=== PATIENT | male | born 1985 | race Caucasian/White ===

== ENCOUNTER 2020-11-09 18:56 | Emergency (ER) | payer BC ==
--- NOTE | 2020-11-09 18:58 | ERPHSYRPT ---
- History of Present Illness Time Seen by Provider: 11/09/20 18:57 Source: patient Exam Limitations: no limitations Physician History: This is a right-handed 35-year-old white male who has suffered a laceration to his right upper inner arm well attempting to work on his garage door. He did not lose consciousness. His tetanus status is up-to-date. Timing/Duration: today Quality: painful Severity: mild Location: extremities (Right inner upper arm) Possible Causes: other (Trauma) Associated Symptoms: other (Laceration right upper inner arm) Allergies/Adverse Reactions: No Known Drug Allergies Allergy (Unverified 11/09/20 19:09) Home Medications: No Reportable Medications [No Reported Medications] 11/09/20 [History] Travel Risk - International Travel Have you traveled outside of the country in past 3 weeks: No - Coronavirus Screening Are you exhibiting any of the following symptoms?: No Close contact with a COVID-19 positive Pt in past 14-21 Days: No - Review of Systems Constitutional: No Symptoms Eyes: No Symptoms Ears, Nose, & Throat: No Symptoms Respiratory: No Symptoms Cardiac: No Symptoms Abdominal/Gastrointestinal: No Symptoms Genitourinary Symptoms: No Symptoms Musculoskeletal: No Symptoms Skin: Other (Laceration to right upper arm inner aspect) Neurological: No Symptoms Psychological: No Symptoms Endocrine: No Symptoms Hematologic/Lymphatic: No Symptoms Immunological/Allergic: No Symptoms All Other Systems: Reviewed and Negative - Past Medical History Pertinent Past Medical History: Yes - Past Surgical History Past Surgical History: Yes - Nursing Vital Signs Nursing Vital Signs: Initial Vital Signs Temperature 97.5 F 11/09/20 19:00 Pulse Rate 79 11/09/20 19:00 Respiratory Rate 20 11/09/20 19:00 Blood Pressure 128/98 11/09/20 19:00 O2 Sat by Pulse Oximetry 95 11/09/20 19:00 Pain Scale Pain Intensity 2 - Physical Exam General Appearance: no apparent distress, alert, anxiety Eye Exam: PERRL/EOMI, eyes nml inspection Ears, Nose, Throat Exam: normal ENT inspection, moist mucous membranes Neck Exam: normal inspection, non-tender, supple, full range of motion Respiratory Exam: normal breath sounds, lungs clear, airway intact, No chest tenderness, No respiratory distress Cardiovascular Exam: regular rate/rhythm, normal heart sounds, normal peripheral pulses Gastrointestinal/Abdomen Exam: soft, normal bowel sounds, No tenderness Rectal Exam: not done Back Exam: normal inspection, normal range of motion, No CVA tenderness, No vertebral tenderness Extremity Exam: normal range of motion, pelvis stable, lacerations (6 cm laceration right upper arm, inner aspect. Neurovascularly intact. Tendons intact. No foreign body. No active bleeding.), tenderness Neurologic Exam: alert, oriented x 3, cooperative, dependency program director II-XII nml as tested, normal mood/affect, nml cerebellar function, nml station & gait, sensation nml Skin Exam: laceration (See above) Lymphatic Exam: No adenopathy SpO2 Interpretation: normal O2 Delivery: Room Air Procedures - Laceration/Wound Repair Right Upper Medial Arm Time of Procedure: 19:35 Wound Location: Right, upper arm (, Inner aspect right side) Wound's Depth, Shape: superficial, linear, into subcut Wound Explored: clean (No foreign body noted. Examination was performed to the base in a bloodless field) Irrigated: Yes Hibiclens Prep: Yes Anesthesia: local, 1% Lidocaine Volume Anesthetic (ccs): 10 Wound Repaired With: sutures, [place] Suture Size/Type: 3-0, nylon Number of Sutures: 3 (In addition,) Layer Closure?: No Sterile Dressing Applied?: Yes Ordered Tests: Medication Summary Generic Name Dose Route Start Last Admin Trade Name Freq PRN Reason Stop Dose Admin Hydrocodone Bitart/Acetaminophen 2 tab 11/09/20 19:48 [place] 5/325 Mg PO 11/09/20 19:49 SENT HOME W/ PATIENT ONE Discontinued Medications Generic Name Dose Route Start Last Admin Trade Name Freq PRN Reason Stop Dose Admin Lidocaine HCl Confirm 11/09/20 19:22 Xylocaine 1% Hcl 20 Ml Mdv Administered 11/09/20 19:23 Dose 10 ml .ROUTE .STK-MED ONE - Progress Progress: improved, pain not gone completely, re-examined Counseled pt/family regarding: diagnosis, need for follow-up - Departure Departure Disposition: Home Clinical Impression: Laceration of right upper arm Condition: Stable Critical Care Time: No Referrals: KRYSTAL BRONSON, OPTICAL INSTRUMENT ASSEMBLY SUPERVISOR [Primary Care Provider] - Additional Instructions: Keep current dressing in place for 24 hours. After 24 hours, may remove the dressing completely and wash the laceration repair site with soap and water. Blot dry use a hairdryer then cover the laceration repair site with a bandage, nonstick gauze and bandage. May use Tylenol and ibuprofen for pain control. After 24 hours, may do daily wound/dressing care as stated above. Staple and suture removal in 10 days. Forms: Work/School Release Form
[2020-11-09 19:10] VITALS: BP 128/98; PULSE 79; O2SAT 95
[2020-11-09] MEDS ORDERED: XYLOCAINE 1% HCL 20 ML MDV ONE (19:22)
[2020-11-09] MEDS ORDERED: NORCO 5/325 MG PO ONE (19:48)
[2020-11-09] MEDS ORDERED: XYLOCAINE 1% HCL 20 ML MDV IJ ONE (19:51)
[2020-11-09] MEDS ORDERED: BACIGUENT PACKET TP ONE (19:52)
[2020-11-09] MEDS ORDERED: BACIGUENT PACKET ONE (19:53)
[2020-11-09] MEDS ORDERED: NORCO 5/325 MG ONE (19:53)
== END 2020-11-09 20:11 | disposition home or self-care (01) ==
LOC: ED 18:56
DX: S41.111A Laceration without foreign body of right upper arm, initial encounter (principal); W26.8XXA Contact with other sharp object(s), not elsewhere classified, initial encounter; Y93.89 Activity, other specified; Y92.89 Other specified places as the place of occurrence of the external cause
CPT/HCPCS: 12002; 96372; 99283; A9270-GY

== ENCOUNTER 2020-11-19 12:47 | Emergency (ER) | payer BC ==
--- NOTE | 2020-11-19 13:30 | ERPHSYRPT ---
- History of Present Illness Time Seen by Provider: 11/19/20 12:49 Source: patient Exam Limitations: no limitations Patient Subjective Stated Complaint: here to have krystle removed Triage Nursing Assessment: Pt came to the ER to have krystle and sutures removed from his right forearm near the elbow, denies pain, wound appears to be healing nice, doesn't appear to be in any distress Physician History: 35 years old male presented in the ER was stable/stitches removal from right medial elbow area for place in 9 days ago. Denies any discharge swelling around. No fever or chills. No difficulty movements of elbow. Allergies/Adverse Reactions: No Known Drug Allergies Allergy (Unverified 11/09/20 19:09) Home Medications: No Reportable Medications [No Reported Medications] 11/09/20 [History] Hx Tetanus, Diphtheria Vaccination/Date Given: Yes Hx Influenza Vaccination/Date Given: No Hx Pneumococcal Vaccination/Date Given: No Travel Risk - International Travel Have you traveled outside of the country in past 3 weeks: No - Coronavirus Screening Are you exhibiting any of the following symptoms?: No Close contact with a COVID-19 positive Pt in past 14-21 Days: No - Vaccine Status Have you recieved a Covid-19 vaccination: No - Review of Systems Constitutional: No Symptoms Respiratory: No Symptoms Cardiac: No Symptoms Abdominal/Gastrointestinal: No Symptoms Musculoskeletal: No Symptoms Skin: Skin Lesions Neurological: No Symptoms - Past Medical History Pertinent Past Medical History: No - Past Surgical History Past Surgical History: Yes Genitourinary: Kidney Surgery Other Surgical History: r nephrectomy - living donor to mother - Social History Smoking Status: Never smoker Exposure to second hand smoke: No Drug Use: none Patient Lives Alone: No - Physical Exam General Appearance: no apparent distress, alert Eye Exam: PERRL/EOMI Neck Exam: normal inspection Respiratory Exam: normal breath sounds, lungs clear Cardiovascular Exam: regular rate/rhythm, normal heart sounds Extremity Exam: normal inspection, other (Longitudinal laceration around right inner aspect of elbow with 3 stitches and 8 krystle. Minimal erythema around. No discharge. Wound edges well approximated. [place] and sutures are removed. No bleeding or discharge.) Neurologic Exam: alert, oriented x 3, cooperative Skin Exam: normal color O2 Delivery: Room Air - Progress Progress Note: 11/19/20 13:29 Wound seems well-healing. Stable and sutures are removed. Discussed wound care and outpatient follow-up as needed. Counseled pt/family regarding: diagnosis, need for follow-up - Departure Departure Disposition: Home Clinical Impression: Encounter for removal of sutures, Visit for wound check Condition: Stable Critical Care Time: No Referrals: KRYSTAL BRONSON, GROUNDS RESTORATION SPECIALIST [Primary Care Provider] - (As needed) Instructions: Wound Care (DC)
== END 2020-11-19 13:30 | disposition home or self-care (01) ==
LOC: ED 12:47
DX: Z48.02 Encounter for removal of sutures (principal)
CPT/HCPCS: 99282; G0463

== ENCOUNTER 2022-12-08 12:34 | Emergency (ER) | payer BC ==
[2022-12-08 12:56] VITALS: TEMP 97.9
[2022-12-08] MEDS ORDERED: Sodium Chloride 0.9% 1000 ML 1,000 ML IV STA (13:13)
[2022-12-08] MEDS ORDERED: Sodium Chloride 0.9% 1000 ML 1,000 ML ONE (13:17)
--- NOTE | 2022-12-08 13:21 | ERPHSYRPT ---
- History of Present Illness Time Seen by Provider: 12/08/22 13:17 Exam Limitations: no limitations Patient Subjective Stated Complaint: pt states that his belly feels bloated and gassy Triage Nursing Assessment: pt ambulated into the er; pt is axo x4; c/o abd pain; abd is round, distended, tender; hyperactive bowel sounds in all quads; c/o N/V/D; mucus membranes pink and moist; skin PDW; no respiratorty distress; vitals wnl Physician History: Patient is a 37-year-old male presents to our ED for evaluation of vomiting x1 week and abdominal pain for the past 2 days. Patient states he feels bloated and gassy. Patient describes his pain as a hunger sensation however he states he is eating. The pain is generalized and nonfocal. No associated symptoms otherwise. No fever. No diarrhea. No rash no trauma. No obvious sick contacts. Patient works as a welder apprentice. at bedside. They voiced no other complaints or concerns at this time. Portions of this note were created with voice recognition technology. There may be grammatical, spelling, punctuation or sound alike errors Timing/Duration: week(s) Activities at Onset: none Quality: other (Hunger like pains) Abdominal Pain Onset Location: generalized abdomen Pain Radiation: no radiation Severity of Pain-Max: moderate Severity of Pain-Current: mild Modifying Factors: Improves With: other Associated Symptoms: nausea, vomiting Previous symptoms: no prior history Allergies/Adverse Reactions: No Known Drug Allergies Allergy (Verified 12/08/22 12:41) Hx Tetanus, Diphtheria Vaccination/Date Given: Yes (2020) Hx Influenza Vaccination/Date Given: No Hx Pneumococcal Vaccination/Date Given: No Travel Risk - International Travel Have you traveled outside of the country in past 3 weeks: No - Coronavirus Screening Close contact with a COVID-19 positive Pt in past 14-21 Days: No - Vaccine Status Have you recieved a Covid-19 vaccination: Yes Instrument Person: Moderna - Vaccination Dates Date of 2cond Vaccination (if applicable): 2020 - Review of Systems Constitutional: No Symptoms, No Fever, No Chills Eyes: No Symptoms Ears, Nose, & Throat: No Symptoms Respiratory: No Symptoms, No Cough, No Dyspnea Cardiac: No Symptoms, No Chest Pain, No Edema, No Syncope Abdominal/Gastrointestinal: No Symptoms, No Abdominal Pain, No Nausea, No Vomiting, No Diarrhea Genitourinary Symptoms: No Symptoms, No Dysuria Musculoskeletal: No Symptoms, No Back Pain, No Neck Pain Skin: No Symptoms, No Rash Neurological: No Symptoms, No Dizziness, No Focal Weakness, No Sensory Changes Psychological: No Symptoms Endocrine: No Symptoms Hematologic/Lymphatic: No Symptoms Immunological/Allergic: No Symptoms All Other Systems: Reviewed and Negative - Past Medical History Pertinent Past Medical History: No - Past Surgical History Past Surgical History: Yes Genitourinary: Kidney Surgery Male Surgical History: Testicular Surgery Other Surgical History: r nephrectomy - living donor to mother, fluid removed from left testicle - Social History Smoking Status: Never smoker Exposure to second hand smoke: Yes Drug Use: none Patient Lives Alone: No - Nursing Vital Signs Nursing Vital Signs: Initial Vital Signs Temperature 97.9 F 12/08/22 12:42 Pulse Rate 68 12/08/22 12:42 Respiratory Rate 18 12/08/22 12:42 Blood Pressure 138/96 12/08/22 12:42 O2 Sat by Pulse Oximetry 98 12/08/22 12:42 Pain Scale Pain Intensity 5 - Physical Exam General Appearance: no apparent distress, alert Eye Exam: PERRL/EOMI, eyes nml inspection Ears, Nose, Throat Exam: normal ENT inspection, pharynx normal, moist mucous membranes Neck Exam: normal inspection, non-tender, supple, full range of motion Respiratory Exam: normal breath sounds, lungs clear, airway intact, No respiratory distress Cardiovascular Exam: regular rate/rhythm, normal heart sounds, normal peripheral pulses Gastrointestinal/Abdomen Exam: soft, No tenderness, No mass Back Exam: normal inspection, normal range of motion, No CVA tenderness, No vertebral tenderness Extremity Exam: normal inspection, normal range of motion, pelvis stable Neurologic Exam: alert, oriented x 3, cooperative, normal mood/affect, nml cerebellar function, sensation nml, No motor deficits Skin Exam: normal color, warm, dry Lymphatic Exam: No adenopathy SpO2 Interpretation: normal SpO2: 98 O2 Delivery: Room Air - Course Nursing assessment & vital signs reviewed: Yes EKG Interpreted by Me: RATE (65), Sinus Rhythm, NORMAL AXIS, NORMAL INTERVALS - CT Exams Abdomen/Pelvis CT Interpretation: Tele-radiologist Report (Atelectasis, diverticulosis, right total nephrectomy) Ordered Tests: Active Orders 24 hr Category Date Time Status IV Insertion STAT Care 12/08/22 13:13 Completed ABDOMEN AND PELVIS W/0 CONTRAS [CT] Stat Exams 12/08/22 13:13 Completed CBC W DIFF Stat Lab 12/08/22 13:00 Completed CMP Stat Lab 12/08/22 13:00 Completed LIPASE Stat Lab 12/08/22 13:00 Completed TROPONIN Q4H Lab 12/08/22 13:00 Completed TROPONIN Q4H Lab 12/08/22 17:15 Ordered TROPONIN Q4H Lab 12/08/22 21:15 Ordered UA W/RFX UR CULTURE Stat Lab 12/08/22 13:16 Completed Medication Summary Discontinued Medications Generic Name Dose Route Start Last Admin Trade Name Freq PRN Reason Stop Dose Admin Sodium Chloride 1,000 mls @ 999 mls/hr 12/08/22 13:13 12/08/22 14:21 Sodium Chloride 0.9% 1000 Ml IV 12/08/22 14:13 Infused .Q1H1M STA Infusion Sodium Chloride Confirm 12/08/22 13:17 Sodium Chloride 0.9% 1000 Ml Administered 12/08/22 13:18 Dose 1,000 mls @ ud .ROUTE .STK-MED ONE Pantoprazole Sodium 40 mg 12/08/22 14:58 12/08/22 15:00 Pantoprazole 40 Mg Vial IV 12/08/22 14:59 40 mg STAT ONE Administration Pantoprazole Sodium Confirm 12/08/22 14:59 Pantoprazole 40 Mg Vial Administered 12/08/22 15:00 Dose 40 mg IV .STK-MED ONE Lab/Rad Data: Laboratory Result Diagrams 12/08/22 13:00 12/08/22 13:00 Laboratory Results 12/08/22 12/08/22 12/08/22 Range/Units 13:16 13:00 13:00 WBC (4.0-10.5) x10^3/uL RBC (4.1-5.6) x10^6/uL Hgb (12.5-18.0) g/dL Hct (42-50) % MCV (78-100) fL MCH (26-32) pg MCHC (32-36) g/dL RDW (11.5-14.0) % Plt Count (150-450) x10^3/uL MPV (7.5-11.0) fL Gran % (36.0-66.0) % Immature Gran % (Auto) (0.00-0.4) % Nucleat RBC Rel Count (0.00-0.1) % Eos # (Auto) (0-0.5) x10^3/uL Immature Gran # (Auto) (0.00-0.03) x10^3u/L Absolute Lymphs (auto) (1.0-4.6) x10^3/uL Absolute Monos (auto) (0.0-1.3) x10^3/uL Absolute Nucleated RBC (0.00-0.01) x10^3u/L Lymphocytes % (24.0-44.0) % Monocytes % (0.0-12.0) % Eosinophils % (0.00-5.0) % Basophils % (0.0-0.4) % Absolute Granulocytes (1.4-6.9) x10^3/uL Basophils # (0-0.4) x10^3/uL Sodium 141 (137-145) mmol/L Potassium 4.1 (3.5-5.1) mmol/L Chloride 106 (98-107) mmol/L Carbon Dioxide 25 (22-30) mmol/L Anion Gap 15.0 (5-15) MEQ/L BUN 16 (9-20) mg/dL Creatinine 1.06 (0.66-1.25) mg/dL Estimated GFR > 60.0 ML/MIN Glucose 93 (74-106) mg/dL Calcium 8.7 (8.4-10.2) mg/dL Total Bilirubin 0.40 (0.2-1.3) mg/dL AST 28 (17-59) U/L ALT 18 (0-50) U/L Alkaline Phosphatase 77 (38-126) U/L Troponin I < 0.012 (0.000-0.034) ng/mL Serum Total Protein 7.2 (6.3-8.2) g/dL Albumin 4.4 (3.5-5.0) g/dL Lipase 53 (23-300) U/L Urine Color Yellow (Yellow) Urine Appearance Clear (Clear) Urine pH 5.5 (4.6-8.0) Ur Specific [place] 1.025 (1.005-1.030) Urine Protein Negative (Negative) Urine Glucose (UA) Negative (Negative) mg/dL Urine Ketones Negative (Negative) Urine Blood Negative (Negative) Urine Nitrite Negative (Negative) Urine Bilirubin Negative (Negative) Urine Urobilinogen 0.2 (0.2) mg/dL Ur Leukocyte Esterase Negative (Negative) U Hyaline Cast (Auto) NONE SEEN (0-2) /LPF Urine Microscopic RBC 0-2 (0-5) /HPF Urine Microscopic WBC 0-2 (0-5) /HPF Ur Epithelial Cells None Seen (None Seen) /HPF Urine Bacteria None Seen (None Seen) /HPF Urine Culture Reflexed NO (NO) 12/08/22 Range/Units 13:00 WBC 6.2 (4.0-10.5) x10^3/uL RBC 4.75 (4.1-5.6) x10^6/uL Hgb 13.7 (12.5-18.0) g/dL Hct 41.8 L (42-50) % MCV 88.0 (78-100) fL MCH 28.8 (26-32) pg MCHC 32.8 (32-36) g/dL RDW 11.6 (11.5-14.0) % Plt Count 231 (150-450) x10^3/uL MPV 11.1 H (7.5-11.0) fL Gran % 71.6 H (36.0-66.0) % Immature Gran % (Auto) 0.5 H (0.00-0.4) % Nucleat RBC Rel Count 0.0 (0.00-0.1) % Eos # (Auto) 0.01 (0-0.5) x10^3/uL Immature Gran # (Auto) 0.03 (0.00-0.03) x10^3u/L Absolute Lymphs (auto) 1.27 (1.0-4.6) x10^3/uL Absolute Monos (auto) 0.43 (0.0-1.3) x10^3/uL Absolute Nucleated RBC 0.00 (0.00-0.01) x10^3u/L Lymphocytes % 20.5 L (24.0-44.0) % Monocytes % 6.9 (0.0-12.0) % Eosinophils % 0.2 (0.00-5.0) % Basophils % 0.3 (0.0-0.4) % Absolute Granulocytes 4.43 (1.4-6.9) x10^3/uL Basophils # 0.02 (0-0.4) x10^3/uL Sodium (137-145) mmol/L Potassium (3.5-5.1) mmol/L Chloride (98-107) mmol/L Carbon Dioxide (22-30) mmol/L Anion Gap (5-15) MEQ/L BUN (9-20) mg/dL Creatinine (0.66-1.25) mg/dL Estimated GFR ML/MIN Glucose (74-106) mg/dL Calcium (8.4-10.2) mg/dL Total Bilirubin (0.2-1.3) mg/dL AST (17-59) U/L ALT (0-50) U/L Alkaline Phosphatase (38-126) U/L Troponin I (0.000-0.034) ng/mL Serum Total Protein (6.3-8.2) g/dL Albumin (3.5-5.0) g/dL Lipase (23-300) U/L Urine Color (Yellow) Urine Appearance (Clear) Urine pH (4.6-8.0) Ur Specific [place] (1.005-1.030) Urine Protein (Negative) Urine Glucose (UA) (Negative) mg/dL Urine Ketones (Negative) Urine Blood (Negative) Urine Nitrite (Negative) Urine Bilirubin (Negative) Urine Urobilinogen (0.2) mg/dL Ur Leukocyte Esterase (Negative) U Hyaline Cast (Auto) (0-2) /LPF Urine Microscopic RBC (0-5) /HPF Urine Microscopic WBC (0-5) /HPF Ur Epithelial Cells (None Seen) /HPF Urine Bacteria (None Seen) /HPF Urine Culture Reflexed (NO) - Progress Progress: improved Progress Note: Patient is a 37-year-old male presents to our ED with his for evaluation of mild abdominal pain vomiting. Physical exam patient had mild diffuse abdominal tenderness. However otherwise negative. Laboratory work-up essentially nonremarkable. Troponin negative. EKG normal sinus rhythm. CT negative for acute pathology. Patient declined pain medication. Patient received IV fluid hydration and pantoprazole. Patient reassessed. He is resting comfortably. Patient has no active discomfort or pain. Results discussed with patient and family. A prescription for pantoprazole started to patient's pharmacy. They agree to follow-up with her primary care doctor within 48 hours for reevaluation. They voiced no other complaints or concerns at this time. Portions of this note were created with voice recognition technology. There may be grammatical, spelling, punctuation or sound alike errors Complexity of problems addressed is moderate acute complicated. No critical care time Complex of data reviewed and analyzed is moderate. Test ordered test reviewed and analyzed. Clinical correlation made between laboratory imaging findings and history and physical examination. No significant findings observed on laboratory or imaging studies. Patient's physical exam revealed mild diffuse abdominal discomfort. Based on the above and conversation with patient and , the decision was made to discharge home with follow-up and a prescription for pantoprazole Risk of complication and or risk morbidity/mortality patient management is mo derate. Vital stable. Time spent to discharge patient approximately 15 minutes. Plan of care established for shared decision making. No social determinants of health present to impede follow-up. Patient/ voiced no other complaints or concerns at this time. Portions of this note were created with voice recognition technology. There may be grammatical, spelling, punctuation or sound alike errors 12/08/22 15:07 Counseled pt/family regarding: lab results, diagnosis, need for follow-up, rad results - Departure Departure Disposition: Home Clinical Impression: Abdominal pain, Diarrhea Condition: Stable Critical Care Time: No Referrals: KRYSTAL BRONSON ART FRAMING MANAGER [NON-STAFF PHY W/O PRIVILEGES] - Follow up/PCP as directed Instructions: Severe Abdominal Pain, Adult (DC) Additional Instructions: Discharge/Care Plan DWAYNE COLLINS was seen on 12/08/22 in the Emergency Room. The patient was counseled regarding Diagnosis,Lab results, Imaging studies, need for follow up and when to return to the Emergency Room. Prescriptions given: Discharge Note I have spoken with the patient and/or caregivers. I have explained the patient's condition, diagnosis and treatment plan based on the information available to me at this time. I have answered the patient's and/or caregiver's questions and addressed any concerns. The patient and/or caregivers have as good understanding of the patient's diagnosis, condition and treatment plan as can be expected at this point. The vital signs have been stable. The patient's condition is stable and appropriate for discharge from the emergency department. The patient will pursue further outpatient evaluation with the primary care physician or other designated or consulting physician as outlined in the dischar ge instructions. The patient and/or caregivers are agreeable to this plan of care and follow-up instructions have been explained in detail. The patient and/or caregivers have received these instruction. The patient/and or caregivers are aware that any significant change in condition or worsening of symptoms should prompt an immediate return to this or the closest emergency department or call 911. Forms: Work/School Release Form Prescriptions: PANTOPRAZOLE 40 mg Tablet [Protonix 40MG Tablet] 40 mg PO QPM 14 Days #14 tab
[2022-12-08 13:29] LABS: Absolute Neutrophil Ct (ANC) 4.43 x10^3/uL (1.4-6.9); BASOPHIL % 0.3 % (0.0-0.4); Basophil (Absolute #) 0.02 x10^3/uL (0-0.4); Eosinophil % 0.2 % (0.00-5.0); Eosinophil (Absolute #) 0.01 x10^3/uL (0-0.5); Hematocrit 41.8 % (42-50); Hemoglobin 13.7 g/dL (12.5-18.0); IMMATURE GRAN # 0.03 x10^3u/L (0.00-0.03); IMMATURE GRAN % 0.5 % (0.00-0.4); Lymphocyte (Absolute #) 1.27 x10^3/uL (1.0-4.6); Lymphocytes % 20.5 % (24.0-44.0); Mean Corpuscular Hemoglobin 28.8 pg (26-32); Mean Corpuscular Hgb Concent. 32.8 g/dL (32-36); Mean Platelet Volume 11.1 fL (7.5-11.0); Monocyte (Absolute #) 0.43 x10^3/uL (0.0-1.3); Monocytes % 6.9 % (0.0-12.0); Neutrophil % 71.6 % (36.0-66.0); Platelet Count 231 x10^3/uL (150-450); Red Blood Count 4.75 x10^6/uL (4.1-5.6); Red Cell Distribution Width 11.6 % (11.5-14.0); White Blood Count 6.2 x10^3/uL (4.0-10.5)
[2022-12-08 13:35] LABS: Appearance Clear (Clear); Bacteria None Seen /HPF (None Seen); Bilirubin Negative (Negative); Blood Negative (Negative); Epithelial Cells None Seen /HPF (None Seen); Glucose, Urine Negative (Negative); Hyaline Casts NONE SEEN /LPF (0-2); Ketones Negative (Negative); Leukocyte Esterase Negative (Negative); Nitrite Negative (Negative); Ph 5.5 (4.6-8.0); Protein,Urine Dip Negative (Negative); RBC 0-2 /HPF (0-5); Specific Gravity 1.025 (1.005-1.030); Urobilinogen 0.2 mg/dL (0.2); WBC 0-2 /HPF (0-5)
[2022-12-08 13:43] LABS: ALBUMIN 4.4 g/dL (3.5-5.0); ALKALINE PHOSPHATASE 77 U/L (38-126); BLOOD UREA NITROGEN 16 mg/dL (9-20); CHLORIDE 106 mmol/L (98-107); Calcium 8.7 mg/dL (8.4-10.2); Carbon Dioxide 25 mmol/L (22-30); Creatinine 1 1.06 mg/dL (0.66-1.25); EST GLOMERULAR FILTRATION RATE > 60.0 ML/MIN; Glucose 93 mg/dL (74-106); LIPASE 53 U/L (23-300); Potassium 4.1 mmol/L (3.5-5.1); SGOT/AST 28 U/L (17-59); SGPT/ALT 18 U/L (0-50); SODIUM 141 mmol/L (137-145); Total Protein 7.2 g/dL (6.3-8.2)
[2022-12-08 13:58] LABS: ADD URINE CULTURE? NO (NO)
--- NOTE | 2022-12-08 14:01 | XRAY ---
Indication: Pain, vomiting, and bloating 2 days. Multiple contiguous axial images obtained through the abdomen and pelvis without contrast. Comparison: None Lung bases demonstrates deep atelectasis. Heart not enlarged. Noncontrasted stomach and bowel loops appear nonobstructed. Appendix not visualized. Mild scattered colonic fecal debris predominantly in right hemicolon. Minimal scattered colonic diverticulosis without diverticulitis. Right total nephrectomy. No free fluid/air. Remaining liver, gallbladder, pancreas, spleen, adrenal glands, left kidney, left ureter, bladder, and aorta are unremarkable for noncontrast exam. Osseous structures intact. No ventral or inguinal hernia. Impression: Diverticulosis and right total nephrectomy. Remaining CT abdomen/pelvis without contrast exam is negative.
[2022-12-08 14:13] VITALS: O2SAT 98
[2022-12-08] MEDS ORDERED: PROTONIX 40 MG IV IV ONE ×2 (14:58→14:59)
[2022-12-08 15:04] VITALS: BP 120/87; PULSE 74; RESP 16
== END 2022-12-08 15:18 | disposition home or self-care (01) ==
LOC: ED 12:34
DX: R10.84 Generalized abdominal pain (principal); R19.7 Diarrhea, unspecified; R11.10 Vomiting, unspecified
CPT/HCPCS: 36000; 36415; 74176; 80053; 81001; 83690; 84484; 85025; 93005; 96360; 96374; 99284